=== PATIENT | female | born 1960 | race Caucasian/White ===

== ENCOUNTER 2021-08-23 10:29 | Emergency (ER) | payer OTHER ==
--- NOTE | 2021-08-23 10:57 | EDM.PDOC ---
ED HPI GENERAL MEDICAL PROBLEM - General Chief Complaint: Neuro Symptoms/Deficits Stated Complaint: FALL, DIZZY Time Seen by Provider: 08/23/21 10:35 Source of Information: Reports: Patient - History of Present Illness INITIAL COMMENTS - FREE TEXT/NARRATIVE: Pilar is a 60 y/o female who comes to the ER with complaints of headache and neck pain along with "slanted vision" that she developed since falling off her horse yesterday. She was riding her horse yesterday and then the horse slipped on some mud and she fell directly onto her head over the neck of the horse. She felt like she had gotten her beltre rung and had to rest a few minutes, but then sis get back on the horse and rode back to camp. She took a nap and felt a bit better, but she was slightly nauseated. She then got up and went to work today, but then noticed that everything in her vision was "slanted" slightly to one side. She does get nauseated and dizzy when she moves her head a certain way. She has not vomited. Denies any other injuries. 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 Neck Pain Score (Numeric/FACES): 5 - Related Data Allergies Allergy/AdvReac Type Severity Reaction Status Date / Time No Known Allergies Allergy Verified 08/23/21 10:36 Home Meds: Home Meds Citalopram [Citalopram HBr] 10 mg PO DAILY 08/23/21 [History] Dicyclomine HCl 10 mg PO DAILY PRN 08/23/21 [History] Ondansetron [Zofran ODT] 4 mg PO Q6H PRN #15 tab.dis 08/23/21 [Rx] Pilocarpine HCl [Pilocarpine] 1 tab PO TID 08/23/21 [History] estradioL [Estradiol] 5 mcg PO DAILY 08/23/21 [History] Review of Systems - Review of Systems Review Of Systems: See Below Constitutional: Reports: No Symptoms Eyes: Reports: Vision Change Ears: Reports: Dizziness Nose: Reports: No Symptoms Mouth/Throat: Reports: No Symptoms Respiratory: Reports: No Symptoms Cardiovascular: Reports: No Symptoms GI/Abdominal: Reports: Nausea Genitourinary: Reports: No Symptoms Musculoskeletal: Reports: No Symptoms Skin: Reports: No Symptoms Neurological: Reports: Dizziness, Headache Psychiatric: Reports: No Symptoms ED EXAM, GENERAL - Physical Exam Exam: See Below Exam Limited By: No Limitations General Appearance: Alert, WD/WN, No Apparent Distress (Adult female, dressed neatly sittingin a chair in the ER.) Eye Exam: Bilateral Eye: EOMI, Normal Fundi, PERRL, Other (Peripheral vision normal, accomadation normal) Ears: Normal External Exam, Normal Canal, Hearing Grossly Normal, Normal TMs Nose: Normal Inspection, Normal Mucosa Throat/Mouth: Normal Inspection, Normal Lips, Normal Teeth, Normal Oropharynx, Normal Voice Head: Atraumatic, Normocephalic Neck: Normal Inspection, Supple, Tender Midline (posterior neck pain) Cardiovascular: Normal Peripheral Pulses, Regular Rate, Rhythm, No Edema, No Murmur GI/Abdominal: Normal Bowel Sounds, Soft, Non-Tender, No Abnormal Bruit (Female) Exam: Deferred Rectal (Female) Exam: Deferred Back Exam: Normal Inspection Extremities: Normal Inspection, Normal Range of Motion, No Pedal Edema, Normal Capillary Refill Neurological: Alert, Oriented, CN II-XII Intact, Normal Cognition, Normal Reflexes, No Motor/Sensory Deficits Psychiatric: Normal Affect, Normal Mood Skin Exam: Warm, Dry, Intact, Normal Color Course - Vital Signs Text/Narrative:: 1035 The patient was seen by the INSULATION HELPER. Labs and CTs ordered. 1150 Received phone results from radiologist, both CTs were negative for any acute pathology. Discussed with patient, sx favor severe concussion. Reviewed care for home with her. She was given written instructions and left the ER in stable condition. Last Recorded V/S: Last Vital Signs Temp 36.3 C 08/23/21 10:30 Pulse 62 08/23/21 10:30 Resp 20 08/23/21 10:30 BP 152/88 H 08/23/21 10:30 Pulse Ox 98 08/23/21 10:30 - Orders/Labs/Meds Orders: Active Orders 24 hr Category Date Time Status Cervical Spine wo Cont [CT] Stat Exams 08/23/21 10:51 Taken Head wo Cont [CT] Stat Exams 08/23/21 10:51 Taken Labs: Laboratory Tests 08/23/21 08/23/21 Range/Units 11:05 11:05 WBC 5.9 (4.0-10.2) K/uL RBC 4.69 (3.77-5.09) M/uL Hgb 13.9 (11.7-15.5) g/dL Hct 40.8 (34.0-46.0) % MCV 87.0 (84.0-98.0) fL MCH 29.6 (28.2-33.3) pg MCHC 34.1 (31.7-36.0) g/dL RDW 12.8 (11.2-14.1) % Plt Count 234 (150-350) K/uL Neut % (Auto) 53.8 (45.0-80.0) % Lymph % (Auto) 35.3 (10.0-50.0) % [place] % (Auto) 7.3 (2.0-14.0) % Eos % (Auto) 2.9 (0.0-5.0) % Baso % (Auto) 0.7 (0.0-2.0) % Neut # (Auto) 3.16 (1.40-7.00) K/uL Lymph # (Auto) 2.07 (0.50-3.50) K/uL [place] # (Auto) 0.43 (0.00-1.00) K/uL Eos # (Auto) 0.17 (0.00-0.50) K/uL Baso # (Auto) 0.04 (0.00-0.20) K/uL Sodium 142 (136-145) mmol/L Potassium 4.3 (3.5-5.1) mmol/L Chloride 106 (98-107) mmol/L Carbon Dioxide 28.6 (21.0-32.0) mmol/L Anion Gap 7.4 (7-15) meq/L BUN 14 (7-18) mg/dL Creatinine 0.77 (0.51-1.17) mg/dL Est Cr Clr Drug Dosing 68.77 mL/min Estimated GFR (MDRD) > 60 mL/min Glucose 101 H (70-99) mg/dL Calcium 9.2 (8.5-10.1) mg/dL Total Bilirubin 0.3 (0.2-1.0) mg/dL AST 22 (15-37) U/L ALT 40 (12-78) U/L Alkaline Phosphatase 108 (46-116) IU/L Total Protein 7.3 (6.4-8.2) g/dL Albumin 3.8 (3.4-5.0) g/dL Departure - Departure Time of Disposition: 11:56 Disposition: Home, Self-Care 01 Clinical Impression: Accident involving stumbling and falling of animal being ridden as cause of injury Concussion Qualifiers: Encounter type: initial encounter Loss of consciousness presence/duration: without LOC Qualified Code(s): S06.0X0A - Concussion without loss of consciousness, initial encounter - Discharge Information *PRESCRIPTION DRUG MONITORING PROGRAM REVIEWED*: No *COPY OF PRESCRIPTION DRUG MONITORING REPORT IN PATIENT EILEEN: No Prescriptions: Ondansetron [Zofran ODT] 4 mg PO Q6H PRN #15 tab.dis PRN Reason: Nausea Instructions: Concussion, Adult, Returning to Sports and Activities After a Concussion, Adult Referrals: PCP,Unknown [Ordering Only Provider] - Forms: ED Department Discharge, ED Return to Work/School Form Additional Instructions: -Ibuprofen/APAP as needed for headache -Stay well hydrated -Rest -Zofran ODT 4 mg oral every 4 hours as needed for nausea #15 (RX) -May go to the chiropractor for a treatment. Otherwise rest in a darkened room avoid alot of stimulation such as computers and TV to allow your brain to heal. -Follow up with your PCP for any further concerns -Note given for the next week off of work. -Return to the ER as needed Sepsis Event Note (ED) - Evaluation Sepsis Screening Result: No Definite Risk - Focused Exam Vital Signs: Vital Signs Temp Pulse Resp BP Pulse Ox 08/23/21 10:30 36.3 C 62 20 152/88 H 98 - Problem List & Annotations (1) Accident involving stumbling and falling of animal being ridden as cause of injury SNOMED Code(s): 502634932, 729958426 Code(s): V80.018A - ANIML-RIDR INJURED BY FALL FR ANIML IN NONCLSN ACC, INIT Status: Acute Current Visit: Yes (2) Concussion SNOMED Code(s): 097652354 Code(s): S06.0X9A - CONCUSSION W LOSS OF CONSCIOUSNESS OF UNSP DURATION, INIT Status: Acute Current Visit: Yes Annotation/Comment:: CT of Head and CSpin e both negative. Will discharge to home with Concussion guidelines. Qualifiers: Encounter type: initial encounter Loss of consciousness presence/duration: without LOC Qualified Code(s): S06.0X0A - Concussion without loss of consciousness, initial encounter - My Orders Last 24 Hours: My Active Orders 08/23/21 10:51 Cervical Spine wo Cont [CT] Stat Head wo Cont [CT] Stat - Assessment/Plan Last 24 Hours: My Active Orders 08/23/21 10:51 Cervical Spine wo Cont [CT] Stat Head wo Cont [CT] Stat Plan: See Above
[2021-08-23 11:30] LABS: ANION GAP 7.4 meq/L (7-15); CHLORIDE,CL 106 mmol/L (98-107); SODIUM,NA 142 mmol/L (136-145)
== END 2021-08-23 12:10 | disposition home or self-care (01) ==
LOC: LL.ED 10:29
DX: S06.0X0A Concussion without loss of consciousness, initial encounter (principal); V80.018A Animal-rider injured by fall from or being thrown from other animal in noncollision accident, initial encounter
CPT/HCPCS: 36415; 70450; 72125; 80053; 85025; 99283; 99284-25

== ENCOUNTER 2023-03-08 18:09 | Emergency (ER) | payer OTHER ==
[2023-03-08 18:14] VITALS: BP 126/82; PULSE 70
== END 2023-03-08 19:20 | disposition home or self-care (01) ==
LOC: LL.ED 18:09
DX: S61.011A Laceration without foreign body of right thumb without damage to nail, initial encounter (principal); W26.0XXA Contact with knife, initial encounter; Y93.G1 Activity, food preparation and clean up
CPT/HCPCS: 12002; 99282